=== PATIENT | male | born 1955 | race African-American/Black ===

== ENCOUNTER 2025-03-10 18:39 | Emergency (ER) | payer MEDICARE ==
[~2025-03-10] VITALS: Ht 180.3 cm; Wt 92.0 kg
[2025-03-10 18:48] VITALS: TEMP 36.7; O2SAT 99
[2025-03-10 20:12] LABS: BASOPHILS % 0.5 % (0.0-2.0); EOSINOPHILS % 3.7 % (0.0-5.0); HEMATOCRIT. 41.9 % (42.0-52.0); MEAN CORPUSCULAR HEMOGLOBIN 30.2 pg (28.0-32.0); MEAN CORPUSCULAR HGB CONC 33.6 g/dL (31.0-37.0); MEAN PLATELET VOLUME 8.3 fl (7.4-10.4); MONOCYTES % 9.9 % (2.0-8.0); NEUTROPHILS % 51.9 % (40.0-76.0); PLATELET 273 x1000/uL (130-400); RED BLOOD CELL COUNT 4.65 mill/uL (4.7-6.1); RED CELL DISTRIBUTION WIDTH 12.6 % (11.6-14.6); WHITE BLOOD COUNT 7.3 x1000/uL (4.5-11.0)
[2025-03-10 20:16] LABS: CARBON DIOXIDE 28 mEq/L (21-32); CHLORIDE 106 mEq/L (98-107); POTASSIUM 4.2 mEq/L (3.5-5.1); SODIUM 140 mEq/L (136-145)
[2025-03-10 20:17] LABS: CALCIUM 9.4 mg/dL (8.7-10.4)
[2025-03-10 20:22] LABS: CREATININE 1.3 mg/dL (0.6-1.3); GLUCOSE 97 mg/dL (70-105); UREA NITROGEN BLOOD 16 mg/dL (9-23)
[2025-03-10 21:27] LABS: CLARITY URINE CLEAR (CLEAR); COLOR URINE YELLOW (YELLOW); GLUCOSE URINE NEGATIVE (NEGATIVE); KETONES URINE NEGATIVE (NEGATIVE); LEUKOCYTE ESTERASE URINE NEGATIVE (NEGATIVE); NITRITE URINE NEGATIVE (NEGATIVE); OCCULT BLOOD URINE NEGATIVE (NEGATIVE); PROTEIN URINE NEGATIVE (NEGATIVE); SPECIFIC GRAVITY URINE 1.014 (1.005-1.030); UROBILINOGEN URINE 0.2 E.U./dL (0.2-1.0)
[2025-03-10] MEDS ORDERED: LEVO-65 MT (22:47)
[2025-03-10 23:52] VITALS: BP 141/64; PULSE 64; RESP 16; O2SAT 96
== END 2025-03-10 23:53 | disposition home or self-care (01) ==
LOC: ER 18:39
DX: N45.3 Epididymo-orchitis (principal); N43.3 Hydrocele, unspecified; Z98.890 Other specified postprocedural states
CPT/HCPCS: 36415; 76870; 80048; 81003; 85025; 93976; 99284